=== PATIENT | female | born 1980 | race African-American/Black ===

== ENCOUNTER 2017-10-31 10:07 | Emergency (ER) | payer SELFPAY ==
[~2017-10-31] VITALS: Ht 152.4 cm; Wt 86.2 kg
[2017-10-31 10:26] VITALS: Ht 152.4 cm; Wt 86.2 kg
[2017-10-31 11:44] VITALS: BP 143/93
== END 2017-10-31 11:43 | disposition home or self-care (01) ==
LOC: ED 10:07
DX: J06.9 Acute upper respiratory infection, unspecified (principal)